=== PATIENT | female | born 1995 | race African-American/Black ===

== ENCOUNTER 2019-09-28 16:50 | Emergency (ER) | payer OTHER ==
[~2019-09-28] VITALS: Ht 177.8 cm; Wt 70.3 kg
--- NOTE | 2019-09-28 17:21 | NUR ---
ER Nurse Note: Pt arrived with wheelchair c/o RT ankle pain after playing basketball at work at 1430. Pt stated there was a crack noise after injury. Pt unable to bear weight. Ankle painful to touch, swollen. Pain with minimal flexion. Ice applied; extremity elevated. All safety measures met; will continue to montior.
[2019-09-28] MEDS ORDERED: Methocarbamol 750mg tab ORAL ONE (17:30)
--- NOTE | 2019-09-28 17:43 | Diagnostic Imaging Report ---
EXAM: XR Right Ankle Complete, 3 or More Views CLINICAL HISTORY: TRAUMA TECHNIQUE: Frontal, lateral and oblique views of the right ankle. COMPARISON: No relevant prior studies available. FINDINGS: Bones/joints: Unremarkable. No acute fracture. No dislocation. Soft tissues: Unremarkable. IMPRESSION: 1. No acute abnormality seen. 2. Unremarkable study.
--- NOTE | 2019-09-28 17:43 | Emergency Room Report ---
History of Present Illness General Chief Complaint: Lower Extremity Injury Source: Patient Present Illness HPI 24-year-old female with history of asthma currently controlled here complaining of right ankle pain after twisting it while playing basketball at work earlier today. Patient rates the pain 10 without radiation. Has been icing it since it happened prior to arrival. Has not taken any pain medication. Denies any pain radiation, tingling or numbness. Obvious swelling noted on both medial and lateral malleolus of right ankle. Denies all other injuries. Denies calf tenderness. Denies chest pain, shortness of breath, headache and dizziness. Denies . Allergies: Coded Allergies: No Known Allergies (Unverified , 09/28/19) COVID-19 Screening Contact w/high risk pt: No Recent Travel to affected area: No Experienced COVID-19 symptoms?: No Patient History Past Medical History: see triage record Past Surgical History: none Pertinent Family History: none Now: No Immunizations: UTD Reviewed Nursing Documentation: PMH: Agreed; PSxH: Agreed Nursing Documentation-PMH Hx Asthma: Yes Review of Systems All Other Systems: negative except mentioned in HPI Physical Exam Vital Signs Date Time Temp Pulse Resp B/P (MAP) Pulse Ox O2 Delivery O2 Flow Rate FiO2 09/28/19 17:15 98.4 76 16 100/59 (73) 100 Room Air Sp02 EP Interpretation: reviewed, normal General Appearance: no apparent distress, alert, GCS 15, non-toxic Head: normocephalic, atraumatic Eyes: bilateral eye normal inspection, bilateral eye PERRL ENT: hearing grossly normal, normal pharynx, no angioedema, normal voice Neck: full range of motion, supple/symm/no masses Respiratory: chest non-tender, lungs clear, normal breath sounds, no rhonchi, no wheezing, speaking full sentences Cardiovascular #1: regular rate, rhythm, no edema, no murmur, normal capillary refill Cardiovascular #2: 2+ dorsalis pedis (R), 2+ dorsalis pedis (L) Gastrointestinal: normal bowel sounds, non tender, soft, non-distended, no guarding, no rebound Rectal: deferred Genitourinary: no CVA tenderness Musculoskeletal: back normal, no calf tenderness, Lacy's Sign negative, non- tender, swelling - Right lateral and medial malleolus Neurologic: alert, motor strength/tone normal, oriented x3, sensory intact, responsive, speech normal Psychiatric: judgement/insight normal, memory normal, mood/affect normal, no suicidal/homicidal ideation Skin: no rash Lymphatic: no adenopathy Medical Decision Making PA Attestation All diagnoses and treatment plans were reviewed and discussed with my supervising physician Dr. John Diagnostic Impression: Primary Impression: Ankle sprain ER Course 24-year-old female with history of asthma currently controlled here complaining of right ankle pain after twisting it while playing basketball at work earlier today. Patient rates the pain 10 without radiation. Has been icing it since it happened prior to arrival. Has not taken any pain medication. Denies any pain radiation, tingling or numbness. Obvious swelling noted on both medial and lateral malleolus of right ankle. Denies all other injuries. Denies calf tenderness. Denies chest pain, shortness of breath, headache and dizziness. Denies . Ddx considered but are not limited to: ankle sprain, ankle strain, ankle fracture, ankle contusion Vital signs: are WNL, pt. is afebrile H&PE are most consistent with: ankle sprain ORDERS: ankle x-ray, Tylenol, Robaxin, Voltaren gel ED INTERVENTIONS: Tylenol and Robaxin, Judah wrap DISCHARGE: At this time pt. is stable for d/c to home. Will provide printed patient care instructions, and any necessary prescriptions. Care plan and follow up instructions have been discussed with the patient prior to discharge. Alternate between icing and heating the affected area, elevate the affected area, follow-up primary care doctor and customer quality specialist. If worsening symptoms return to the emergency room Other X-Ray Diagnostic Results Other X-Ray Diagnostic Results : X-Ray ordered: Right ankle # of Views/Limited Vs Complete: 3 View Indication: Swelling EP Interpretation: Yes PA Xray: Interpretation reviewed, by supervising MD, and agrees with findings. Interpretation: no dislocation, no fractures Impression: No acute disease Electronically Signed by: Tasha GONZALEZ Scribgail Text FINDINGS: Bones/joints: Unremarkable. No acute fracture. No dislocation. Soft tissues: Unremarkable. IMPRESSION: 1. No acute abnormality seen. 2. Unremarkable study. Last Vital Signs Date Time Temp Pulse Resp B/P (MAP) Pulse Ox O2 Delivery O2 Flow Rate FiO2 09/28/19 17:15 98.4 76 16 100/59 73 100 Room Air Status: improved Disposition: HOME, SELF-CARE Condition: Stable Patient Instructions: Ankle Sprain Additional Instructions: Alternate between icing and heating the affected area, elevate the affected area , follow-up primary care doctor and customer quality specialist. If worsening symptoms return to the emergency room Tasha Jenkins Sep 28, 2019 17:43
[2019-09-28] MEDS ORDERED: VOLTAREN100 G1 TP (17:46)
[2019-09-28] MEDS ORDERED: ROBAXIN-500MG ORAL (17:46)
[2019-09-28] MEDS ORDERED: TYLENOL EXTRA500 MG ORAL (17:46)
[2019-09-28 18:00] VITALS: BP 100/59
--- NOTE | 2019-09-28 18:16 | NUR ---
ED Nurse Note: Pt cleared by health care Provider for discharge. DC instructions/prescription was given and explained to pt and verbalized understanding of teachings. All medical deviecs such as ID band removed. Pt is AAO x4, ambulatory and left with all personal belongings.
== END 2019-09-28 18:00 | disposition home or self-care (01) ==
LOC: EMR 17:15
DX: S93.401A Sprain of unspecified ligament of right ankle, initial encounter (principal); X50.1XXA Overexertion from prolonged static or awkward postures, initial encounter; Y92.9 Unspecified place or not applicable
CPT/HCPCS: 99283